=== PATIENT | female | born 1970 | race Caucasian/White ===

== ENCOUNTER 2016-07-16 19:31 | Emergency (ER) | payer MEDICARE ==
[2016-07-16 19:37] VITALS: TEMP 98
[2016-07-16] MEDS ORDERED: KETOROLAC 30 MG/ML 1 ML VIAL IVP STA (20:28)
--- NOTE | 2016-07-16 20:33 | ED ---
General Adult HPI - General Chief complaint: Abdominal Pain Stated complaint: Rt Flank Pain Time Seen by Provider: 07/16/16 19:58 Source: patient, RN notes reviewed Mode of arrival: ambulatory Limitations: no limitations - History of Present Illness Initial comments: Patient is a 46 year old female presents to the emergency room for evaluation of right upper quadrant/rib pain. Patient states the pain began about a week ago. Patient denies any recent falls or trauma to her right side. Patient states it hurts take a deep breath or cough. Patient states that she went to her primary care provider a few days ago and they ordered an ultrasound for her. Patient states she still hasn't received the results and is still having pain and did not want to wait for results so she came here. Patient states having a constant sharp pain under her ribs on the right anterior side. Patient states she has a history of cholecystectomy. Patient also states she has a history of kidney stones. Patient states this does not feel like kidney stones. Patient denies chest pain. Patient denies any fevers or chills. Patient denies taking anything for pain. Patient states the pain is worse with movement. Patient states when she presses over the area when she has to stand up or move, she has slight relief of symptoms. Patient states she's had an on- and-off cough for the past week. Patient denies it being productive. Patient does admit to smoking about half pack per day. - Related Data Home Medications Medication Instructions Recorded Confirmed Estrogen,Con/M-Progest Acet 1 tab PO DAILY 07/16/16 07/16/16 [Prempro 0.625-5 mg Tablet] FLUoxetine HCL [PROzac] 40 mg PO [facility] 07/16/16 07/16/16 Levothyroxine Sodium [Synthroid] 25 mcg PO DAILY 07/16/16 07/16/16 Loratadine [Claritin] 10 mg PO DAILY 07/16/16 07/16/16 Omeprazole 40 mg PO DAILY 07/16/16 07/16/16 Phentermine HCl [Adipex-P] 37.5 mg PO QAM 07/16/16 07/16/16 Propranolol [Inderal] 40 mg PO BID 07/16/16 07/16/16 Ziprasidone [Geodon] 80 mg PO HS 07/16/16 07/16/16 clonazePAM [KlonoPIN] 1.5 mg PO 07/16/16 07/16/16 Previous Rx's Medication Instructions Recorded HYDROcodone/APAP 5-325MG [[place] 1 tab PO Q6HR PRN #20 tab 07/16/16 5-325] Ibuprofen [Motrin] 600 mg PO Q6HR PRN #20 tab 07/16/16 Allergies Allergy/AdvReac Type Severity Reaction Status Date / Time metronidazole [From Flagyl] AdvReac Nausea & Verified 07/16/16 19:37 Vomiting sulfamethoxazole AdvReac Nausea & Verified 07/16/16 19:37 [From Bactrim] Vomiting trimethoprim [From Bactrim] AdvReac Nausea & Verified 07/16/16 19:37 Vomiting Review of Systems ROS Statement: Those systems with pertinent positive or pertinent negative responses have been documented in the HPI. ROS Other: All systems not noted in ROS Statement are negative. Past Medical History Past Medical History: GERD/Reflux Additional Past Medical History / Comment(s): MIGRAINES,IBS, KIDNEY STONES-RT HYDRONEPHROSIS History of Any Multi-Drug Resistant Organisms: None Reported Past Surgical History: Cholecystectomy, Hernia Repair, Hysterectomy Additional Past Surgical History / Comment(s): CYSTOSCOPY WITH LT URETERAL STENT PLACEMENT 12-23-14,BLADDER MESH,KIDNEY STONE PROCEDURES,LIPOSUCTION AND TUMMY TUCK, right kidney removed 02/17/15 Past Anesthesia/Blood Transfusion Reactions: Motion Sickness, Postoperative Nausea & Vomiting (PONV) Past Psychological History: Anxiety, Bipolar, Depression Smoking Status: Current every day smoker Past Alcohol Use History: None Reported Additional Past Alcohol Use History / Comment(s): STARTED SMOKING AT AGE 14 Past Drug Use History: None Reported - Past Family History Mother Family Medical History: Cancer General Exam - General Exam Comments Initial Comments: Laying in exam room, no acute distress. Limitations: no limitations General appearance: alert, in no apparent distress Head exam: Present: atraumatic, normocephalic, normal inspection Eye exam: Present: normal appearance ENT exam: Present: normal exam Neck exam: Present: normal inspection Respiratory exam: Present: normal lung sounds bilaterally, chest wall tenderness (Tenderness on palpating over the anterior right rib area underneath the right breast. No rashes noted.). Absent: respiratory distress Cardiovascular Exam: Present: regular rate, normal rhythm, normal heart sounds GI/Abdominal exam: Present: soft, normal bowel sounds. Absent: distended, tenderness, guarding, rebound, rigid Extremities exam: Present: normal inspection Back exam: Present: normal inspection Neurological exam: Present: alert, oriented X3, CN II-XII intact, normal gait Psychiatric exam: Present: normal affect, normal mood Skin exam: Present: warm, dry, intact, normal color. Absent: rash Course Vital Signs 07/16/16 07/16/16 07/16/16 19:34 20:44 22:05 Temperature 98.0 F Pulse Rate 80 76 74 Respiratory 18 16 16 Rate Blood Pressure 112/65 131/74 128/77 O2 Sat by Pulse 100 96 96 Oximetry Medical Decision Making - Medical Decision Making Patient is a 46-year-old female presents to the emergency room for evaluation of right-sided rib pain. Chest x-ray shows no acute findings. Case discussed with Dr. Naylor. Dr. Naylor agrees pain is likely related to costochondritis. Will send patient home on pain medications and have her follow-up with her primary care provider for further evaluation. Patient states she understands everything that was discussed with her. Return parameters discussed. - Lab Data Result diagrams: 07/16/16 20:04 07/16/16 20:04 Lab Results 07/16/16 07/16/16 07/16/16 Range/Units 19:51 19:51 20:04 WBC (3.8-10.6) k/uL RBC (3.80-5.40) m/uL Hgb (11.4-16.0) gm/dL Hct (34.0-46.0) % MCV (80.0-100.0) fL MCH (25.0-35.0) pg MCHC (31.0-37.0) g/dL RDW (11.5-15.5) % Plt Count (150-450) k/uL Neutrophils % % Lymphocytes % % Monocytes % % Eosinophils % % Basophils % % Neutrophils # (1.3-7.7) k/uL Lymphocytes # (1.0-4.8) k/uL Monocytes # (0-1.0) k/uL Eosinophils # (0-0.7) k/uL Basophils # (0-0.2) k/uL Hypochromasia Anisocytosis Sodium 142 (137-145) mmol/L Potassium 5.3 H (3.5-5.1) mmol/L Chloride 112 H (98-107) mmol/L Carbon Dioxide 17 L (22-30) mmol/L Anion Gap 13 mmol/L BUN 17 (7-17) mg/dL Creatinine 1.11 H (0.52-1.04) mg/dL Est GFR (MDRD) Af Amer >60 (>60 ml/min/1.73 sqM) Est GFR (MDRD) Non-Af 53 (>60 ml/min/1.73 sqM) Glucose 88 (74-99) mg/dL Calcium 8.8 (8.4-10.2) mg/dL Total Bilirubin 0.7 (0.2-1.3) mg/dL AST 48 H (14-36) U/L ALT 41 (9-52) U/L Alkaline Phosphatase 147 H (38-126) U/L Total Protein 7.2 (6.3-8.2) g/dL Albumin 3.9 (3.5-5.0) g/dL Amylase 106 (30-110) U/L Lipase 178 (23-300) U/L Urine Color Yellow Urine Appearance Clear (Clear) Urine pH 6.5 (5.0-8.0) Ur Specific [place] 1.026 (1.001-1.035) Urine Protein 1+ H (Negative) Urine Glucose (UA) Negative (Negative) Urine Ketones Trace H (Negative) Urine Blood Negative (Negative) Urine Nitrate Negative (Negative) Urine Bilirubin 1+ H (Negative) Urine Urobilinogen 6.0 (<2.0) mg/dL Ur Leukocyte Esterase Small H (Negative) Urine RBC 10 H (0-5) /hpf Urine WBC 9 H (0-5) /hpf Ur Squamous Epith Cells 2 (0-4) /hpf Amorphous Sediment Rare H (None) /hpf Urine Bacteria Occasional H (None) /hpf Hyaline Casts 7 H (0-2) /lpf Urine Mucus Rare H (None) /hpf Urine HCG, Qual Not Detected (Not Detectd) 07/16/16 Range/Units 20:04 WBC 14.8 H (3.8-10.6) k/uL RBC 4.52 (3.80-5.40) m/uL Hgb 11.0 L (11.4-16.0) gm/dL Hct 36.4 (34.0-46.0) % MCV 80.6 (80.0-100.0) fL MCH 24.2 L (25.0-35.0) pg MCHC 30.1 L (31.0-37.0) g/dL RDW 16.8 H (11.5-15.5) % Plt Count 439 (150-450) k/uL Neutrophils % 61 % Lymphocytes % 28 % Monocytes % 6 % Eosinophils % 3 % Basophils % 0 % Neutrophils # 9.0 H (1.3-7.7) k/uL Lymphocytes # 4.2 (1.0-4.8) k/uL Monocytes # 0.9 (0-1.0) k/uL Eosinophils # 0.4 (0-0.7) k/uL Basophils # 0.1 (0-0.2) k/uL Hypochromasia Marked Anisocytosis Slight Sodium (137-145) mmol/L Potassium (3.5-5.1) mmol/L Chloride (98-107) mmol/L Carbon Dioxide (22-30) mmol/L Anion Gap mmol/L BUN (7-17) mg/dL Creatinine (0.52-1.04) mg/dL Est GFR (MDRD) Af Amer (>60 ml/min/1.73 sqM) Est GFR (MDRD) Non-Af (>60 ml/min/1.73 sqM) Glucose (74-99) mg/dL Calcium (8.4-10.2) mg/dL Total Bilirubin (0.2-1.3) mg/dL AST (14-36) U/L ALT (9-52) U/L Alkaline Phosphatase (38-126) U/L Total Protein (6.3-8.2) g/dL Albumin (3.5-5.0) g/dL Amylase (30-110) U/L Lipase (23-300) U/L Urine Color Urine Appearance (Clear) Urine pH (5.0-8.0) Ur Specific [place] (1.001-1.035) Urine Protein (Negative) Urine Glucose (UA) (Negative) Urine Ketones (Negative) Urine Blood (Negative) Urine Nitrate (Negative) Urine Bilirubin (Negative) Urine Urobilinogen (<2.0) mg/dL Ur Leukocyte Esterase (Negative) Urine RBC (0-5) /hpf Urine WBC (0-5) /hpf Ur Squamous Epith Cells (0-4) /hpf Amorphous Sediment (None) /hpf Urine Bacteria (None) /hpf Hyaline Casts (0-2) /lpf Urine Mucus (None) /hpf Urine HCG, Qual (Not Detectd) - Radiology Data Radiology results: report reviewed, image reviewed Disposition Clinical Impression: Costochondritis, acute Disposition: HOME SELF-CARE Condition: Good Instructions: Costochondritis (ED) Additional Instructions: Take medications as needed for pain. Please follow up with primary care provider for further evaluation. If any new symptom arises, symptoms worsen or fever develops, return to ER as soon as possible. Prescriptions: HYDROcodone/APAP 5-325MG [[place] 5-325] 1 tab PO Q6HR PRN #20 tab PRN Reason: Pain Ibuprofen [Motrin] 600 mg PO Q6HR PRN #20 tab PRN Reason: Pain Referrals: Hina De La Torre MD [Primary Care Provider] - 1-2 days Time of Disposition: 21:47
[2016-07-16 20:44] VITALS: RESP 16
[2016-07-16 20:47] LABS: Amorphous Sediment,Urine Rare /hpf; Appearance,Urine Clear (Clear); Bacteria,Urine Occasional /hpf; Bilirubin,Urine 1+ (Negative); Glucose,Urine (UA) Negative (Negative); Ketones,Urine Trace (Negative); Leukocyte Esterase,Urine Small (Negative); Mucus,Urine Rare /hpf; Nitrite,Urine Negative (Negative); PH, Urine 6.5 (5.0-8.0); Particle Count 3585; Protein,Urine 1+ (Negative); RBC,Urine 10 /hpf (0-5); Specific Gravity,Urine 1.026 (1.001-1.035); Squamous Epithelial Cell,Urine 2 /hpf (0-4); UA Billing (MACRO vs. MICRO) MICRO; WBC,Urine 9 /hpf (0-5)
[2016-07-16 20:53] LABS: Anisocytosis Slight; Basophils # (A) 0.1 k/uL (0-0.2); Basophils % (A) 0 %; CHCM 29.9; Eosinophils # (A) 0.4 k/uL (0-0.7); Eosinophils % (A) 3 %; HCT 36.4 % (34.0-46.0); HDW 3.03; Hypochromasia Marked; Luc # (Auto) 0.31; Luc % (Auto) 2; Lymphocytes # (A) 4.2 k/uL (1.0-4.8); Lymphocytes % (A) 28 %; MCH 24.2 pg (25.0-35.0); MCHC 30.1 g/dL (31.0-37.0); MCV 80.6 fL (80.0-100.0); Mean Platelet Volume 6.9; Monocytes # (A) 0.9 k/uL (0-1.0); Monocytes % (A) 6 %; Neutrophils % (A) 61 %; RBC 4.52 m/uL (3.80-5.40); RDW 16.8 % (11.5-15.5); WBC 14.8 k/uL (3.8-10.6)
[2016-07-16 20:59] LABS: ALT 41 U/L (9-52); AST 48 U/L (14-36); Alkaline Phosphatase 147 U/L (38-126); Amylase 106 U/L (30-110); Anion Gap 13 mmol/L; Blood Urea Nitrogen 17 mg/dL (7-17); Calcium 8.8 mg/dL (8.4-10.2); Carbon Dioxide 17 mmol/L (22-30); Chloride 112 mmol/L (98-107); Glucose 88 mg/dL (74-99); Non-African American GFR(MDRD) 53 (>60 ml/min/1.73 sqM); Potassium 5.3 mmol/L (3.5-5.1); Sodium 142 mmol/L (137-145); Total Bilirubin 0.7 mg/dL (0.2-1.3); Total Protein 7.2 g/dL (6.3-8.2)
[2016-07-16] MEDS ORDERED: HYDROmorphone 1 MG/ML 1 ML SYRINGE IVP STA (21:08)
--- NOTE | 2016-07-16 21:10 | XR ---
EXAMINATION TYPE: XR ribs RT w pa chest x-ray DATE OF EXAM: 07/16/2016 8:41 PM COMPARISON: NONE HISTORY: Sharp right-sided lower anterior rib pain without known injury TECHNIQUE: 5 views were obtained and compared with the March 15, 2011 chest x-ray portable. FINDINGS: The ribs have normal appearance. The pleural spaces are negative. There are no incidental f indings. IMPRESSION: Negative examination.
[2016-07-16 22:08] VITALS: BP 128/77; PULSE 74
== END 2016-07-16 22:09 | disposition home or self-care (01) ==
LOC: EC 19:31
DX: M94.0 Chondrocostal junction syndrome [Tietze] (principal); F41.9 Anxiety disorder, unspecified; F32.9 Major depressive disorder, single episode, unspecified; Z90.49 Acquired absence of other specified parts of digestive tract; Z87.442 Personal history of urinary calculi; Z79.899 Other long term (current) drug therapy; Z88.1 Allergy status to other antibiotic agents; Z88.3 Allergy status to other anti-infective agents; Z88.2 Allergy status to sulfonamides; Z79.3 Long term (current) use of hormonal contraceptives; F17.200 Nicotine dependence, unspecified, uncomplicated; F31.9 Bipolar disorder, unspecified
CPT/HCPCS: 99284; 96374; 96375; 36415; 80053; 82150; 83690; 85025; 81001; 81025; 71101; J1885

== ENCOUNTER → 2016-07-23 | Outpatient (CLI) | payer MEDICARE ==
--- NOTE | 2016-07-24 09:04 | MM ---
Reason for exam: screening (asymptomatic). Last mammogram was performed 2 years and 4 months ago. History: Family history of breast cancer in maternal grandmother. Physical Findings: A clinical breast exam by your physician is recommended on an annual basis and results should be correlated with mammographic findings. MG 3D Screening Mammo W/Cad Bilateral CC and MLO view(s) were taken. Prior study comparison: March 08, 2014, bilateral MG screening mammo w CAD. February 24, 2013, [facility] DIGITAL RIGHT MAMMOGRAM w/CAD. There are scattered fibroglandular densities. Asymmetric breast tissue in the left breast, stable. There is no discrete abnormality. ASSESSMENT: Negative, BI-RAD 1 RECOMMENDATION: Routine screening mammogram of both breasts in 1 year.
== END | disposition home or self-care (01) ==
LOC: RADMAMWWP 08:04
PROVIDERS: ATTEND Internal Medicine
DX: Z12.31 Encounter for screening mammogram for malignant neoplasm of breast (principal)
CPT/HCPCS: 77052; 77063; G0202